=== PATIENT | female | born 1995 | race Two or more races ===

== ENCOUNTER 2021-05-30 22:01 | Emergency (ER) | payer OTHER ==
[~2021-05-30] VITALS: Ht 154.9 cm; Wt 68.9 kg
== END 2021-05-31 00:33 | disposition home or self-care (01) ==
LOC: ER 22:01
DX: N39.0 Urinary tract infection, site not specified (principal); D64.89 Other specified anemias

== ENCOUNTER 2021-06-03 10:48 | Emergency (ER) | payer OTHER ==
[~2021-06-03] VITALS: Ht 160 cm; Wt 73.0 kg
[2021-06-03] MEDS ORDERED: CIPRO500 MG PO (15:22)
== END 2021-06-03 17:46 | disposition home or self-care (01) ==
LOC: ER 10:48
DX: K29.00 Acute gastritis without bleeding (principal); N39.0 Urinary tract infection, site not specified

== ENCOUNTER 2022-02-10 08:30 | Emergency (ER) | payer OTHER ==
[~2022-02-10] VITALS: Ht 157.5 cm; Wt 73.0 kg
[~2022-02-10 08:30] MED LIST: CIPRO500 MG PO
[2022-02-10] MEDS ORDERED: IRON236 MG PO (09:20)
== END 2022-02-10 11:59 | disposition home or self-care (01) ==
LOC: ER 08:30
DX: N93.9 Abnormal uterine and vaginal bleeding, unspecified (principal); R10.2 Pelvic and perineal pain; Z91.013 Allergy to seafood

== ENCOUNTER 2022-12-31 17:12 | Emergency (ER) | payer OTHER ==
[~2022-12-31] VITALS: Ht 157.5 cm; Wt 73.0 kg
[~2022-12-31 17:12] MED LIST changes: +IRON236 MG PO
[2022-12-31] MEDS ORDERED: CEPHALEXIN500 MG PO (20:45)
== END 2022-12-31 20:58 | disposition home or self-care (01) ==
LOC: ER 17:12
DX: O23.40 Unspecified infection of urinary tract in pregnancy, unspecified trimester (principal); R11.0 Nausea; Z20.822 Contact with and (suspected) exposure to COVID-19; Z91.013 Allergy to seafood

== ENCOUNTER 2023-02-02 15:15 | Outpatient (CLI) | payer OTHER ==
[~2023-02-02 15:15] MED LIST changes: +CEPHALEXIN500 MG PO
== END 2023-02-02 17:29 | disposition home or self-care (01) ==
LOC: PRENATAL 15:15
PROVIDERS: ATTEND Obstetrics & Gynecology Maternal & Fetal Medicine
DX: O36.80X0 Pregnancy with inconclusive fetal viability, not applicable or unspecified (principal); Z3A.12 12 weeks gestation of pregnancy

== ENCOUNTER 2023-03-30 14:06 | Outpatient (CLI) | payer OTHER | END 2023-03-30 15:58 | disposition home or self-care (01) | LOC: PRENATAL 14:06 | PROVIDERS: ATTEND Obstetrics & Gynecology Maternal & Fetal Medicine | DX: O35.3XX0 Maternal care for (suspected) damage to fetus from viral disease in mother, not applicable or unspecified (principal); O44.00 Complete placenta previa NOS or without hemorrhage, unspecified trimester; Z3A.20 20 weeks gestation of pregnancy ==

== ENCOUNTER 2023-04-16 19:35 | Outpatient (CLI) | payer OTHER ==
[2023-04-17] MEDS ORDERED: CEPHALEXIN500 M1 PO (08:44)
== END 2023-04-17 10:33 | disposition home or self-care (01) ==
LOC: OBS/DEL 19:35
PROVIDERS: Specialist; ATTEND Obstetrics & Gynecology
DX: O23.32 Infections of other parts of urinary tract in pregnancy, second trimester (principal); N39.0 Urinary tract infection, site not specified; Z3A.23 23 weeks gestation of pregnancy; Z91.013 Allergy to seafood

== ENCOUNTER → 2023-06-24 | Outpatient (CLI) | payer OTHER ==
[~2023-06-24] MED LIST changes: +CEPHALEXIN500 M1 PO
== END | disposition home or self-care (01) ==
LOC: PRENATAL 10:05
PROVIDERS: ATTEND Obstetrics & Gynecology Maternal & Fetal Medicine
DX: O26.849 Uterine size-date discrepancy, unspecified trimester (principal); O36.8199 Decreased fetal movements, unspecified trimester, other fetus; Z3A.32 32 weeks gestation of pregnancy

== ENCOUNTER 2023-08-05 08:30 | Inpatient (IN) | payer OTHER ==
[~2023-08-05] VITALS: Ht 157.5 cm; Wt 3.6 kg
[2023-08-18] MEDS ORDERED: IRON325 MG PO (06:10)
[2023-08-18 07:05] LABS: PH,URINE 6.5 (5.0-8.0); URINE APPEARANCE Cloudy; URINE BILIRRUBIN Negative (NEGATIVE); URINE BLOOD Negative; URINE COLOR Yellow; URINE GLUCOSE Negative (NEGATIVE); URINE LEUKOCYTE Moderate; URINE NITRATE Negative; URINE PROTEIN Negative (NEGATIVE)
[2023-08-18 07:08] LABS: URINE BACTERIA 5924.3 uL (0.0-1933); URINE EPITHELIAL CELLS 144.7 uL (0.0-38.8); URINE WBC 107.9 uL (0.0-23.2)
[2023-08-18 07:17] LABS: HEMOGLOBIN 11.5 g/dL (12.0-15.00); MEAN CORPUSCULAR HEMOGLOBIN 25.2 pg (27.00-32.0); MEAN CORPUSCULAR HGB CONC 32.8 g/dl (32.0-36.0); PLATELET COUNT 257 K/uL (150-450); RED BLOOD COUNT 4.55 M/uL (4.00-6.00)
[2023-08-18 07:19] LABS: RED CELL DISTRIBUTION WIDTH 18.7 % (11.5-14.5)
[2023-08-18 07:36] LABS: INR < 0.93; PARTIAL THROMBOPLASTIN TIME 29.8 SECONDS (22.0-34.0); PROTHROMBIN TIME 9.8 SECONDS (9.0-11.5)
[2023-08-18 07:43] LABS: URINE MUCUS MODERATE
[2023-08-18 07:47] LABS: ALBUMIN 2.8 gm/dL (3.4-5.0); BILIRUBIN TOTAL 0.25 mg/dL (0.3-1.2); CALCIUM 8.7 mg/dL (8.5-10.1); CREATININE SERUM 0.49 mg/dL (0.55-1.02); GFR 151.49; GLOBULINA 3.9 G/DL (2.4-3.5); POTASSIUM 3.69 mEq/L (3.5-5.1); TOTAL PROTEIN 6.7 gm/dL (6.4-8.2)
[2023-08-18] MEDS ORDERED: PRENATAL + DHA1 EAC1 (10:10)
[2023-08-18 17:59] LABS: ABG PH 7.278 (7.35-7.45); ABG PO2 32.2 mmHg (80-100); BICARBONATE 23.3 mmol/l (23-25); SaO2 51.8 %; Tco2 24.9 mmol/l; o2 21 %
[2023-08-19 07:01] LABS: HEMATOCRIT 29.9 % (36.0-45.00); HEMOGLOBIN 10.1 g/dL (12.0-15.00); MEAN CELL VOLUME 78.2 fL (80.00-100.00); MEAN CORPUSCULAR HEMOGLOBIN 26.5 pg (27.00-32.0); MEAN CORPUSCULAR HGB CONC 33.9 g/dl (32.0-36.0); PLATELET COUNT 234 K/uL (150-450); RED BLOOD COUNT 3.82 M/uL (4.00-6.00); RED CELL DISTRIBUTION WIDTH 18.9 % (11.5-14.5)
== END 2023-08-21 16:23 | disposition home or self-care (01) | DRG 788 ==
LOC: OB/GYN 08-10 08:30 → LDR 08-18 05:16 → O/R 08-18 05:16 → OB/GYN 08-18 05:16 → O/R 08-18 08:59 → LDR 08-18 09:09 → O/R 08-18 09:59 → OB/GYN 08-18 12:07
PROVIDERS: ADMIT Obstetrics & Gynecology; ATTEND Obstetrics & Gynecology
PROC: 3E033VJ Introduction of Other Hormone into Peripheral Vein, Percutaneous Approach (ICD-10-PCS; 2023-08-18)
PROC: 3E0P7VZ Introduction of Hormone into Female Reproductive, Via Natural or Artificial Opening (ICD-10-PCS; 2023-08-18)
PROC: 4A1HXCZ Monitoring of Products of Conception, Cardiac Rate, External Approach (ICD-10-PCS; 2023-08-18)
PROC: 10D00Z1 Extraction of Products of Conception, Low, Open Approach (ICD-10-PCS; principal; 2023-08-18 12:15)
DX: O36.8330 Maternal care for abnormalities of the fetal heart rate or rhythm, third trimester, not applicable or unspecified (principal); O77.0 Labor and delivery complicated by meconium in amniotic fluid; O48.0 Post-term pregnancy; Z3A.40 40 weeks gestation of pregnancy; Z37.0 Single live birth; Z20.822 Contact with and (suspected) exposure to COVID-19

== ENCOUNTER 2025-01-09 16:48 | Emergency (ER) | payer OTHER ==
[~2025-01-09] VITALS: Ht 157.5 cm; Wt 68.9 kg
[~2025-01-09 16:48] MED LIST changes: +IRON325 MG PO; +PRENATAL + DHA1 EAC1
[2025-01-09] MEDS ORDERED: ACETAMINOPHEN 500 MG GEL..CAP PO ONE (17:04)
[2025-01-09 19:52] LABS: BASO % 0.2 % (0.1-1.2); EOS # 0.07 (0.04-0.54); EOS % 1.2 % (0.7-7.0); HEMATOCRIT 32.5 % (34.1-44.9); HEMOGLOBIN 10.7 g/dL (11.2-15.7); LYMPH # 0.28 (1.18-3.74); LYMPH % 4.9 % (19.3-53.1); MEAN CORPUSCULAR HEMOGLOBIN 24.5 pg (25.6-32.2); MONO # 0.43 (0.24-0.82); MONO % 7.5 % (4.7-12.5); NEUT # 4.91 (1.56-6.13); PLATELET COUNT 213 K/uL (163-369); RED BLOOD COUNT 4.36 M/uL (3.93-5.22); RED CELL DISTRIBUTION WIDTH 14.9 % (11.6-14.4)
[2025-01-09 20:18] LABS: COVID-19 AG NEGATIVE (NEGATIVE)
[2025-01-09 20:34] LABS: INFLUENZA A AG NEGATIVE (NEGATIVE); INFLUENZA B AG NEGATIVE (NEGATIVE)
[2025-01-09 20:54] LABS: PH,URINE 6.5 (5.0-8.0); URINE APPEARANCE Cloudy; URINE BILIRRUBIN Negative (NEGATIVE); URINE BLOOD Negative; URINE COLOR Yellow; URINE GLUCOSE Negative (NEGATIVE); URINE KETONE Negative (NEGATIVE); URINE LEUKOCYTE Large; URINE NITRATE Negative; URINE PROTEIN Trace (NEGATIVE)
[2025-01-09 20:56] LABS: URINE EPITHELIAL CELLS 108.7 uL (0.0-38.8); URINE WBC 334.3 uL (0.0-23.2)
[2025-01-09 21:23] LABS: URINE CAST 0.14 uL (0.0-1.40)
[2025-01-09] MEDS ORDERED: CEFAZOLIN SODIUM 1,000 MG VIAL IM STA (21:45)
[2025-01-09] MEDS ORDERED: CEFAZOLIN SODIUM 1,000 MG VIAL ONE (21:47)
== END 2025-01-09 21:59 | disposition home or self-care (01) ==
LOC: ER 16:48
DX: R30.0 Dysuria (principal); J06.9 Acute upper respiratory infection, unspecified; J00 Acute nasopharyngitis [common cold]; Z20.822 Contact with and (suspected) exposure to COVID-19

== ENCOUNTER 2025-03-13 19:34 | Emergency (ER) | payer OTHER ==
[~2025-03-13] VITALS: Ht 157.5 cm; Wt 69.9 kg
[2025-03-13 19:45] VITALS: BP 126/73; O2SAT 99
[2025-03-13] MEDS ORDERED: KETOROLAC TROMETHAMINE 30 MG VIAL IV ONE (20:45)
[2025-03-13] MEDS ORDERED: 0.9 % SODIUM CHLORIDE 1,000 ML IV ONE (20:45)
[2025-03-13 21:22] LABS: BASO % 0.4 % (0.1-1.2); EOS # 0.15 (0.04-0.54); EOS % 2.2 % (0.7-7.0); LYMPH # 2.07 (1.18-3.74); LYMPH % 29.9 % (19.3-53.1); MEAN PLATELET VOLUME 11.10 fl (9.4-12.4); MONO # 0.46 (0.24-0.82); MONO % 6.6 % (4.7-12.5); NEUT # 4.20 (1.56-6.13); NEUT % 60.6 % (34.0-71.1); RED CELL DISTRIBUTION WIDTH 15.4 % (11.6-14.4)
[2025-03-13 21:42] LABS: URINE APPEARANCE Clear; URINE BILIRRUBIN Negative (NEGATIVE); URINE BLOOD Negative; URINE COLOR Yellow; URINE GLUCOSE Negative (NEGATIVE); URINE KETONE Trace (NEGATIVE); URINE LEUKOCYTE Negative; URINE NITRATE Negative; URINE PROTEIN Trace (NEGATIVE); URINE UROBILINOGEN 1.0 E.U./dl
[2025-03-13 21:42] LABS: INR 1.0
[2025-03-13 21:45] LABS: URINE BACTERIA 661.2 uL (0.0-1933); URINE EPITHELIAL CELLS 24.4 uL (0.0-38.8); URINE RBC 6.5 uL (0.0-20.8); URINE WBC 14.3 uL (0.0-23.2)
[2025-03-13 21:51] LABS: ALT/SGPT 21 U/L (12-78); AST/SGOT 16 U/L (15-37); BILIRUBIN TOTAL 0.21 mg/dL (0.3-1.2); BUN CREA RATIO 19 (7.0-25.0); CREATININE SERUM 0.57 mg/dL (0.55-1.02); GFR 125.40; GLOBULINA 4.1 G/DL (2.4-3.5); GLUCOSE FASTING 105 mg/dL (65-100); OSMOLALITY SERUM 287 MOSM/KG (275-295)
[2025-03-13 21:52] LABS: HCG QUANTITATIVE < 1 mUI/mL (1-3)
[2025-03-13 22:22] LABS: URINE CAST 0.14 uL (0.0-1.40)
[2025-03-14] MEDS ORDERED: NORFLEX100MG PO (00:03)
== END 2025-03-14 00:07 | disposition home or self-care (01) ==
LOC: ER 19:34
PROVIDERS: General Practice
DX: R10.31 Right lower quadrant pain (principal); J45.909 Unspecified asthma, uncomplicated; M79.7 Fibromyalgia